=== PATIENT | female | born 1930 | race Caucasian/White ===

== ENCOUNTER 2018-12-26 09:39 | Inpatient (IN) | payer MEDICARE, BC ==
[~2018-12-26] VITALS: Ht 162.6 cm; Wt 93.7 kg
[~2018-12-26 09:39] MED LIST: cefTRIAXone SOD 1 GM in D5W MINI-BAG PLUS 50 ML IV SCH
[2018-12-26] MEDS ORDERED: ONDANSETRON 4MG/2ML VIAL (J2405) IV ONE (10:00)
[2018-12-26] MEDS ORDERED: NS 1,000 ML IV ONE ×2 (10:00→13:30)
[2018-12-26] MEDS ORDERED: LIDOCAINE 2% 5ML JELLY UROJET TOP ONE (10:00)
[2018-12-26] MEDS ORDERED: HYDR12.55 PO (10:26)
[2018-12-26] MEDS ORDERED: LEVO125T4 PO (10:26)
[2018-12-26] MEDS ORDERED: LISI10TA4 PO (10:26)
[2018-12-26] MEDS ORDERED: OCUVTAB4 PO (10:26)
--- NOTE | 2018-12-26 10:30 | REP ---
Portable chest x-ray: Single view. History: Abdomen pain. Findings: Monitoring electrodes are seen. The patient appears to be status post right mastectomy. There are clips in right axilla. The lungs are symmetrically aerated and clear. Heart is not enlarged. Pulmonary vasculature is not increased. Impression: No acute disease. Electronically Signed by Ciro Powell MD 12/26/2018 10:21 A
[2018-12-26] MEDS ORDERED: hydroCHLOROthiazide 12.5 MG CAPSULE PO ONE (10:45)
[2018-12-26 10:52] LABS: BASO % 0.1 % (0.0-1.0); HEMATOCRIT 40.9 % (36.0-47.0); HEMOGLOBIN 13.4 g/dl (12.0-15.5); LYMPH # 0.6 10^3/uL (1.5-5.0); LYMPH % 7.9 % (24.0-44.0); MEAN CORPUSCULAR HEMOGLOBIN 33.4 pg (27.0-33.0); MEAN CORPUSCULAR HGB CONC 32.8 g/dl (32.0-36.5); MONO # 0.4 10^3/uL (0.0-0.8); MONO % 5.3 % (0.0-5.0); NEUTROPHILS # 6.9 10^3/uL (1.5-8.5); NEUTROPHILS % 86.4 % (36.0-66.0); PLATELET COUNT, AUTOMATED 201 10^3/uL (150-450); RED BLOOD COUNT 4.01 10^6/uL (4.00-5.40)
[2018-12-26 11:04] LABS: INR 0.99; PROTHROMBIN TIME 12.8 SECONDS (11.8-14.0)
[2018-12-26 11:05] LABS: PARTIAL THROMBOPLASTIN TIME 24.2 SECONDS (25.0-38.4)
[2018-12-26] MEDS ORDERED: ISOVUE-370 76% 100ML VIAL (Q9967) As Ordered ONE (11:24)
[2018-12-26 11:30] LABS: ALBUMIN 3.7 GM/DL (3.2-5.2); ALT/SGPT 21 U/L (12-78); BILIRUBIN,DIRECT 0.1 MG/DL (0.0-0.2); BILIRUBIN,TOTAL 0.5 MG/DL (0.2-1.0); CK-MB VALUE MASS 1.3 NG/ML (<3.6); CPK CREATINE PHOSPHOKINASE 53 U/L (26-192); LIPASE 62 U/L (73-393); MB/CK RELATIVE INDEX 2.45 (< OR =4); TOTAL PROTEIN 7.4 GM/DL (6.4-8.2); TROPONIN I < 0.02 NG/ML (< 0.10)
[2018-12-26] MEDS ORDERED: PIPERACILLIN/TAZOBACTAM SOD 3.375 GM in D5W MINI-BAG PLUS 50 ML IV ONE (11:45)
--- NOTE | 2018-12-26 12:32 | REP ---
CT ABDOMEN AND PELVIS WITH IV BUT WITHOUT ORAL CONTRAST: HISTORY: Lower abdomen pain. No comparison CT study. The patient gives additional history of breast carcinoma. CT CONTRAST DOSE: 100 mL of intravenous Isovue-[address] FINDINGS: Preliminary digital geophysical prospector radiograph shows clips in the right upper quadrant. Bowel gas pattern is normal. The lung bases are clear on axial CT images. There is a moderate size sliding-type hiatal hernia. The liver is normal in size, homogeneous in texture. Post cholecystectomy clips are seen. No biliary ductal dilation is observed. Spleen is unremarkable. No adrenal lesion is seen on either side. There is an obstructive nephrogram on the right with perinephric edema. There is mild right-sided hydronephrosis. There are cortical cysts in the right kidney, the largest of which measures 1.8 cm. Left kidney is normal in appearance. There is a retroaortic left renal vein noted incidentally. The right hydroureter is seen traceable to the ureterovesical junction, where there is an obstructing calculus in the ureterovesical junction. This calculus measures 6 mm in greatest diameter on coronal multiplanar re-formation image. No bladder calculus is seen. No other ureteral calculus or upper tract calculus is appreciated. No retroperitoneal mass or adenopathy is seen. No pancreatic abnormalities observed. Vascular calcification is noted. No uterine or ovarian abnormality is seen. There is a small periumbilical hernia transmitting abdominal fat through a 1.6 cm defect. IMPRESSION: Obstructive 6 mm right ureterovesical junction calculus producing moderate right-sided hydronephrosis and hydroureter. Electronically Signed by Ciro Powell MD 12/26/2018 12:38 P
[2018-12-26] MEDS ORDERED: KETOROLAC 30 MG/ML VIAL (J1885) IV PRN (13:45)
[2018-12-26] MEDS ORDERED: PERCOCET 5MG/325MG TAB PO PRN ×2 (13:45→23:15)
[2018-12-26] MEDS ORDERED: hydrALAZINE INJ 20 MG/ML VIAL IV PRN (13:45)
[2018-12-26] MEDS ORDERED: APAP500T10 PO (13:51)
[2018-12-26] MEDS: LISINOPRIL 10 MG TAB PO SCH (14:51)
--- NOTE | 2018-12-26 17:18 | HPEPDOC ---
[facility] Medical History & Physical Date of Admission Dec 26, 2018 Date of Service: Dec 26, 2018 Attending Physician: BRYAN ZAMUDIO MD History and Physical CHIEF COMPLAINT: Abdominal pain HISTORY OF PRESENT ILLNESS: 88-year-old female with past medical history of hypertension, hypothyroidism, presents with nausea, vomiting and abdominal pain since last night. She reports feeling well up until then with sudden onset lower abdominal plain, followed by nausea and multiple episodes of nonbloody, no nbilious vomiting. She continued having vomiting up until presenting to the emergency room, also had one episode of emesis in the emergency department. Otherwise, she reports lower abdominal pain with mild to moderate left flank pain as well. She denies any associated fever, chest pain, shortness of breath, diarrhea or constipation. She denies any recent sick contacts, in the emergency room she was found to have obstructive uropathy with moderate right hydronephrosis. She was evaluated by urology, plan for surgical intervention later today. 10 point review of systems negative except for above PAST MEDICAL HISTORY: 1. Hypertension. 2. Hypothyroidism. PAST SURGICAL HISTORY: 1. Cholecystectomy. SOCIAL HISTORY: Never smoker. Denies alcohol. Denies drug use FAMILY HISTORY: Family history positive for heart disease ALLERGIES: Please see below. HOME MEDICATIONS: Please see below. PHYSICAL EXAMINATION: VITAL SIGNS: Please see below. GENERAL: No distress HEENT: Normocephalic, atraumatic, moist mucous membranes NECK: Supple CARDIOVASCULAR EXAMINATION: S1, S2, no murmurs RESPIRATORY EXAMINATION: Clear to auscultation, no wheezing ABDOMINAL EXAMINATION: Soft, nontender, nondistended, positive bowel sounds EXTREMITIES: Range of motion intact SKIN: No rash NEUROLOGICAL EXAMINATION: Alert and oriented 3, no focal deficits PSYCHIATRIC EXAMINATION: Calm and cooperative LABORATORY DATA: See below. IMAGING: CT abdomen and pelvis showing 6 mm stone at the right UVJ with subsequent moderate hydronephrosis and hydroureter. MICROBIOLOGY: Please see below. ASSESSMENT: 88-year-old female with past medical history of hypertension, hypothyroidism, presents with obstructive uropathy causing right sided moderate hydronephrosis and hydroureter. PLAN: 1. Obstructive uropathy. 6 mm stone at the right UVJ causing moderate right hydronephrosis and hydroureter. Evaluated by urology, plan for surgical intervention later today. Continue IV fluids, pain control UA concerning for UTI, status post Zosyn in the ED, continue ceftriaxone. 2. Hypertension. BP elevated in the ED, IV hydralazine when necessary, continue home BP meds (lisinopril and hydrochlorothiazide) 3. Hypothyroidism. Continue levothyroxine DVT prophylaxis: Heparin subcutaneous GI prophylaxis: Not needed Vital Signs Vital Signs Date Time Temp Pulse Resp B/P (MAP) Pulse Ox O2 Delivery O2 Flow Rate FiO2 12/26/18 16:30 97 190/73 (112) 97 Room Air 12/26/18 15:00 18 12/26/18 09:39 96.6 Laboratory Data Labs 24H Laboratory Tests 2 12/26/18 09:57: Lactic Acid Level 3.0*H 12/26/18 10:02: Immature Granulocyte % (Auto) 0.3, Neutrophils (%) (Auto) 86.4H, Lymphocytes (%) (Auto) 7.9L, Monocytes (%) (Auto) 5.3H, Eosinophils (%) (Auto) 0.0, Basophils (%) (Auto) 0.1, Neutrophils # (Auto) 6.9, Lymphocytes # (Auto) 0.6L, Monocytes # (Auto) 0.4, Eosinophils # (Auto) 0.0, Basophils # (Auto) 0.0, Nucleated Red Blood Cells % (auto) 0.0, Prothrombin Time 12.8, Prothromb Time International Ratio 0.99, Activated Partial Thromboplast Time 24.2L, Total Bilirubin 0.5, Direct Bilirubin 0.1, Aspartate Amino Transf (AST/SGOT) 14, Alanine Aminotransferase (ALT/SGPT) 21, Alkaline Phosphatase 69, Total Creatine Kinase 53, Creatine Kinase MB 1.3, Creatine Kinase MB Relative Index 2.45, Troponin I < 0.02, Total Protein 7.4, Albumin 3.7, Albumin/Globulin Ratio 1.00, Lipase 62L 12/26/18 10:08: POC Glucose (Misc Panel) 269H, POC Sodium (Misc Panel) 139, POC Potassium (Misc Panel) 4.0, POC Chloride (Misc Panel) 105, POC Total CO2 (Misc Panel) 24.0, POC Blood Urea Nitrogen (Misc Panel 27H, POC Ionized Calcium (Misc Panel) 4.7, POC Creatinine (Misc Panel) 1.0, POC Hematocrit (Misc Panel) 41.0 12/26/18 11:21: Urine Color YELLOW, Urine Appearance HAZY, Urine pH 5.0, Urine Specific [place] 1.016, Urine Protein 1+H, Urine Glucose (UA) 3+H, Urine Ketones 2+H, Urine Blood 2+H, Urine Nitrite NEGATIVE, Urine Bilirubin NEGATIVE, Urine Urobilinogen 0.2, Urine Leukocyte Esterase 3+H, Urine WBC (Auto) 46H, Urine RBC (Auto) 45H, Urine Hyaline Casts (Auto) 0, Urine Bacteria (Auto) 1+H, Urine Squamous Epithelial Cells 4, Urine Mucus (Auto) SMALL, Urine Sperm (Auto) 12/26/18 16:07: Lactic Acid Followup at 4 Hours 3.2*H CBC/BMP Laboratory Tests 12/26/18 10:02 Microbiology Microbiology 12/26/18 Urine Culture, Received Pending 12/26/18 Blood Culture, Received Pending 12/26/18 Blood Culture, Received Pending Home Medications Scheduled Hydrochlorothiazide (Hydrochlorothiazide) 12.5 Mg Tablet, 12.5 MG PO DAILY Levothyroxine Sodium (Levothyroxine Sodium) 125 Mcg Tablet, 125 MCG PO DAILY Lisinopril (Lisinopril) 10 Mg Tablet, 10 MG PO DAILY Vit A/Vit C/Vit E/Zinc/Copper (Preservision Areds Tablet) 1 Each Tablet, 1 TAB PO DAILY Scheduled PRN Acetaminophen (Acetaminophen) 500 Mg Tablet, 1,000 MG PO Q4H PRN for PAIN Allergies Coded Allergies: morphine (Verified Adverse Reaction, Mild, HALLUCINATIONS, 12/26/18) A-FIB/CHADSVASC A-FIB History Current/History of A-Fib/PAF?: No BRYAN ZAMUDIO MD Dec 26, 2018 17:18
[2018-12-26 18:00] VITALS: BP 139/78
[2018-12-26] MEDS: ACETAMINOPHEN 500 MG TAB PO PRN (18:42)
--- NOTE | 2018-12-26 19:05 | ECGEPIP ---
[facility] - ED Test Date: 2018-12-26 Pat Name: GENTRY MIN Department: Room: - Gender: Female [place] [employer]: : 1930 Requested By: Trey Matthew Order Number: [id number] Reading MD: Sania Hickey Measurements Intervals [place] Rate: 97 P: 68 IN: 160 QRS: 20 QRSD: 102 T: 5 QT: 350 QTc: 446 Interpretive Statements SINUS RHYTHM NONSPECIFIC T-WAVE ABNORMALITY NO PRIOR Electronically Signed on 12-26-2018 19:04:54 EST by Sania Hickey
[2018-12-26 20:00] VITALS: BP 128/50
[2018-12-26] MEDS ORDERED: NS 1,000 ML IV SCH (20:15)
[2018-12-26] MEDS: HEPARIN SOD (PORCINE) 5000 UNITS/ML VIAL SC SCH (20:31)
[2018-12-26] MEDS ORDERED: SEVOFLURANE INHAL SOLN 250 ML BTL As Ordered ONE (21:31)
[2018-12-26] MEDS ORDERED: fentaNYL 100 MCG/2 ML INJECTION (J3010) As Ordered ONE (21:32)
[2018-12-26] MEDS ORDERED: ONDANSETRON 4MG/2ML VIAL (J2405) As Ordered ONE (21:33)
[2018-12-26] MEDS ORDERED: METOCLOPRAMIDE INJ 10MG/2ML VIAL (J2765) As Ordered ONE (21:33)
[2018-12-26] MEDS ORDERED: dexameTHASONE 4 MG/ML 1ML VIAL (J1100) As Ordered ONE (21:34)
[2018-12-26] MEDS ORDERED: PROPOFOL 200 MG/20 ML VIAL As Ordered ONE (21:35)
[2018-12-26] MEDS ORDERED: ROCURONIUM BROMIDE 50 MG/5 ML VIAL As Ordered ONE (21:35)
[2018-12-26] MEDS ORDERED: LIDOCAINE 2% INJ 100 MG/5 ML SDV (FOR ANES.) As Ordered ONE (21:35)
[2018-12-26] MEDS ORDERED: CONRAY-60 60% 50ML VIAL (Q9961) As Ordered ONE (21:47)
[2018-12-26] MEDS ORDERED: SUGAMMADEX SODIUM 500 MG/5 ML VIAL (BRIDION) As Ordered ONE (22:19)
[2018-12-26] MEDS ORDERED: LR 1,000 ML IV SCH (23:15)
[2018-12-26] MEDS ORDERED: ONDANSETRON 4MG/2ML VIAL (J2405) IV PRN (23:15)
[2018-12-26] MEDS ORDERED: fentaNYL 100 MCG/2 ML INJECTION (J3010) IV PRN (23:15)
[2018-12-27] VITALS (8 sets, daily range): BP systolic 124–170; BP diastolic 58–86
[2018-12-27] MEDS ORDERED: LR 1,000 ML IV SCH
[2018-12-27] MEDS: LEVOTHYROXINE 125MCG TABLET (0.125MG) PO SCH (05:42)
[2018-12-27 06:34] LABS: ALBUMIN 2.9 GM/DL (3.2-5.2); ALT/SGPT 19 U/L (12-78); BILIRUBIN,TOTAL 0.4 MG/DL (0.2-1.0); BLOOD UREA NITROGEN 25 MG/DL (7-18); CALCIUM LEVEL 8.6 MG/DL (8.8-10.2); CARBON DIOXIDE LEVEL 21 MEQ/L (21-32); CHLORIDE LEVEL 112 MEQ/L (98-107); CREATININE FOR GFR 0.82 MG/DL (0.55-1.30); GLOMERULAR FILTRATION RATE > 60.0 (>32); GLUCOSE, FASTING 184 MG/DL (70-100); MAGNESIUM LEVEL 1.9 MG/DL (1.8-2.4); POTASSIUM SERUM 3.9 MEQ/L (3.5-5.1); SODIUM LEVEL 139 MEQ/L (136-145); TOTAL PROTEIN 6.7 GM/DL (6.4-8.2)
--- NOTE | 2018-12-27 08:28 | REP ---
RETROGRADE PYELOGRAM: SINGLE VIEW. HISTORY: Cystoscopy, right ureteroscopy. 30 seconds of fluoroscopy time is reported. FINDINGS: A single, last image hold fluoroscopically-obtained spot radiograph documents ureteral stent in place. No laterality marker is visible. There are clips in the upper abdomen correlating with this being a right-sided procedure. Electronically Signed by Ciro Powell MD 12/27/2018 09:15 A
[2018-12-27] MEDS: LISINOPRIL 10 MG TAB PO SCH (09:59)
[2018-12-27] MEDS: HEPARIN SOD (PORCINE) 5000 UNITS/ML VIAL SC SCH ×2 (09:59→20:32)
[2018-12-27] MEDS: hydroCHLOROthiazide 12.5 MG CAPSULE PO SCH (09:59)
[2018-12-27 10:37] LABS: HEMATOCRIT 38.6 % (36.0-47.0); HEMOGLOBIN 12.6 g/dl (12.0-15.5); MEAN CORPUSCULAR HEMOGLOBIN 33.6 pg (27.0-33.0); MEAN CORPUSCULAR HGB CONC 32.6 g/dl (32.0-36.5); MEAN CORPUSCULAR VOLUME 102.9 fl (80.0-96.0); PLATELET COUNT, AUTOMATED 193 10^3/uL (150-450); RED BLOOD COUNT 3.75 10^6/uL (4.00-5.40); WHITE BLOOD COUNT 9.2 10^3/uL (4.0-10.0)
--- NOTE | 2018-12-27 11:22 | CR ---
DATE OF CONSULT: 12/26/2018 REASON FOR CONSULT: Right hydronephrosis. HISTORY: This is a pleasant 88-year-old white female who presented to the emergency room because of a complaint of lower abdominal pain for about one day. She states that the abdominal pain started suddenly and was accompanied by some nausea and vomiting. She denies any urinary complaints and has no history of gross hematuria or previous history of renal stones or other urologic conditions. CT scan shows mild right hydronephrosis and a large stone at the distal right ureter. Urology consult was therefore called. PAST MEDICAL HISTORY: Significant for hypertension, hypothyroidism. PAST SURGICAL HISTORY: Cholecystectomy. SOCIAL HISTORY: Patient never smoked. Does not drink or use recreational drugs. FAMILY HISTORY: Positive only for heart disease with no history of stones or urologic issues. PHYSICAL EXAMINATION: Shows an alert, oriented white female, who is in no acute distress. HEENT: Pupils are equal and reactive to light. Sclerae are white. Extraocular muscles intact. Neck is supple without adenopathy. Trachea is in the midline. No jugular venous distention. Chest is normothoracic. Abdomen is slightly rounded, soft, and benign. There are no masses, organomegaly, or tenderness. She did not have any costovertebral angle (CVA) tenderness. Vital signs show that she is not febrile. Urine culture and blood cultures were sent. Laboratory data showed a white cell count of 8.0 and urinalysis showed no nitrites. The urine was yellow, hazy with 4+ glucose, 2+ blood, 48 white cells, and 45 red cells per high power field. Blood pressure is 188/107. ASSESSMENT: Distal right ureteral calculus, probably responsible for the patient's nausea, vomiting, and abdominal discomfort. Because of her blood pressures and the hydronephrosis, I recommended stone removal, which will be performed later today.
[2018-12-27] MEDS ORDERED: cefTRIAXone SOD 1 GM in D5W MINI-BAG PLUS 50 ML IV SCH (12:00)
[2018-12-27] MEDS: OCUVITE 1 TAB PO SCH (13:00)
--- NOTE | 2018-12-27 16:09 | IPNPDOC ---
Date Seen The patient was seen on 12/27/18. Progress Note HISTORY OF PRESENT ILLNESS: 88-year-old female with past medical history of hypertension, hypothyroidism, presents with nausea, vomiting and abdominal pain since last night. She reports feeling well up until then with sudden onset lower abdominal plain, followed by nausea and multiple episodes of nonbloody, nonbilious vomiting. She continued having vomiting up until presenting to the emergency room, also had one episode of emesis in the emergency department. Otherwise, she reports lower abdominal pain with mild to moderate left flank pain as well. She denies any associated fever, chest pain, shortness of breath, diarrhea or constipation. She denies any recent sick contacts, in the emergency room she was found to have obstructive uropathy with moderate right hydronephrosis. She was evaluated by urology, plan for surgical intervention later today. 12/27/2018 Patient comfortable in bed, without any complaints, reports complete resolution of abdominal/flank pain, denies any nausea, vomiting as well, tolerating diet, wishing to go home today. 10 point review of systems negative except for above HOME MEDICATIONS: Please see below. PHYSICAL EXAMINATION: VITAL SIGNS: Please see below. GENERAL: No distress HEENT: Normocephalic, atraumatic, moist mucous membranes NECK: Supple CARDIOVASCULAR EXAMINATION: S1, S2, no murmurs RESPIRATORY EXAMINATION: Clear to auscultation, no wheezing ABDOMINAL EXAMINATION: Soft, nontender, nondistended, positive bowel sounds EXTREMITIES: Range of motion intact SKIN: No rash NEUROLOGICAL EXAMINATION: Alert and oriented 3, no focal deficits PSYCHIATRIC EXAMINATION: Calm and cooperative LABORATORY DATA: See below. IMAGING: CT abdomen and pelvis showing 6 mm stone at the right UVJ with subsequent moderate hydronephrosis and hydroureter. MICROBIOLOGY: Please see below. ASSESSMENT: 88-year-old female with past medical history of hypertension, hypothyroidism, presents with obstructive uropathy causing right sided moderate hydronephrosis and hydroureter. PLAN: 1. Obstructive uropathy. 6 mm stone at the right UVJ causing moderate right hydronephrosis and hydroureter. Status post ureteral stent placement, discontinue IV fluids, continue pain control as needed, continue ceftriaxone, urine cultures pending. 2. Hypertension. BP well controlled today, continue home lisinopril and hydrochlorothiazide. 3. Hypothyroidism. Continue levothyroxine DVT prophylaxis: Heparin subcutaneous GI prophylaxis: Not needed VS, I&O, 24H, Fishbone Vital Signs/I&O Vital Signs Date Time Temp Pulse Resp B/P (MAP) Pulse Ox O2 Delivery O2 Flow Rate FiO2 12/27/18 12:00 99.9 83 18 139/58 (85) 99 12/27/18 11:03 Room Air 12/27/18 08:00 2.0 I&O- Last 24 Hours up to 6 AM 12/27/18 06:00 Intake Total 2210 ml Output Total 600 ml Balance 1610 ml Laboratory Data 24H LABS Laboratory Tests 2 12/27/18 06:01: Anion Gap 6L, Glomerular Filtration Rate > 60.0, Lactic Acid Level 1.4, Calcium Level 8.6L, Magnesium Level 1.9, Total Bilirubin 0.4, Aspartate Amino Transf ( AST/SGOT) 12, Alanine Aminotransferase (ALT/SGPT) 19, Alkaline Phosphatase 57, Total Protein 6.7, Albumin 2.9#L, Albumin/Globulin Ratio 0.76L 12/27/18 10:12: Nucleated Red Blood Cells % (auto) 0.0 CBC/BMP Laboratory Tests 12/27/18 06:01 12/27/18 10:12 Microbiology Microbiology 12/26/18 Urine Culture, Received Pending 12/26/18 Blood Culture - Preliminary, Resulted No growth after 24 hours . All specim... 12/26/18 Blood Culture - Preliminary, Resulted No growth after 24 hours . All specim... BRYAN ZAMUDIO MD Dec 27, 2018 16:09
[2018-12-27] MEDS ORDERED: ONDANSETRON 4MG/2ML VIAL (J2405) IV PRN (18:00)
[2018-12-27] MEDS: ACETAMINOPHEN 500 MG TAB PO PRN (18:15)
[2018-12-28 04:00] VITALS: BP 150/62
[2018-12-28] MEDS: LEVOTHYROXINE 125MCG TABLET (0.125MG) PO SCH (05:40)
[2018-12-28 06:03] LABS: HEMATOCRIT 36.7 % (36.0-47.0); HEMOGLOBIN 12.2 g/dl (12.0-15.5); MEAN CORPUSCULAR HEMOGLOBIN 33.8 pg (27.0-33.0); MEAN CORPUSCULAR HGB CONC 33.2 g/dl (32.0-36.5); MEAN CORPUSCULAR VOLUME 101.7 fl (80.0-96.0); PLATELET COUNT, AUTOMATED 190 10^3/uL (150-450); RED BLOOD COUNT 3.61 10^6/uL (4.00-5.40); WHITE BLOOD COUNT 7.9 10^3/uL (4.0-10.0)
[2018-12-28 06:24] LABS: BLOOD UREA NITROGEN 27 MG/DL (7-18); CALCIUM LEVEL 8.6 MG/DL (8.8-10.2); CARBON DIOXIDE LEVEL 28 MEQ/L (21-32); CHLORIDE LEVEL 109 MEQ/L (98-107); GLOMERULAR FILTRATION RATE > 60.0 (>32); GLUCOSE, FASTING 159 MG/DL (70-100); MAGNESIUM LEVEL 1.8 MG/DL (1.8-2.4); PHOSPHORUS LEVEL 2.5 MG/DL (2.5-4.9); POTASSIUM SERUM 3.5 MEQ/L (3.5-5.1); SODIUM LEVEL 143 MEQ/L (136-145)
[2018-12-28 08:04] VITALS: BP 150/62
[2018-12-28] MEDS: LISINOPRIL 10 MG TAB PO SCH (08:04)
[2018-12-28] MEDS: hydroCHLOROthiazide 12.5 MG CAPSULE PO SCH (08:04)
[2018-12-28] MEDS: HEPARIN SOD (PORCINE) 5000 UNITS/ML VIAL SC SCH (08:04)
[2018-12-28] MEDS ORDERED: AZITHROMYCIN 250 MG TAB PO SCH (09:00)
[2018-12-28] MEDS ORDERED: AZIT-12 PO (11:24)
[2018-12-28] MEDS: OCUVITE 1 TAB PO SCH (12:27)
--- NOTE | 2018-12-28 14:27 | DS.PDOC ---
Discharge Summary General Date of Admission Dec 26, 2018 at 13:32 Date of Discharge 12/28/18 Specialist/Consultants Involve urology Discharge Summary PROCEDURES PERFORMED DURING STAY: Ureteral stent ADMITTING DIAGNOSES: Obstructive uropathy DISCHARGE DIAGNOSES: obstructive uropathy uti COMPLICATIONS/CHIEF COMPLAINT: Hydronephrosis. HISTORY OF PRESENT ILLNESS: 88-year-old female with past medical history of hypertension, hypothyroidism, presents with nausea, vomiting and abdominal pain since last night. She reports feeling well up until then with sudden onset lower abdominal plain, followed by nausea and multiple episodes of nonbloody, nonbilious vomiting. She continued having vomiting up until presenting to the emergency room, also had one episode of emesis in the emergency department. Otherwise, she reports lower abdominal pain with mild to moderate left flank pain as well. She denies any associated fever, chest pain, shortness of breath, diarrhea or constipation. She denies any recent sick contacts, in the emergency room she was found to have obstructive uropathy with moderate right hydronephrosis. She was evaluated by urology, plan for surgical intervention later today. HOSPITAL COURSE: Seen by consultation by urology, and underwent right ureteral stent placement. Urine cultures revealed MRSA, discharged home with oral anti- microbial therapy. 1. Obstructive uropathy. 6 mm stone at the right UVJ causing moderate right hydronephrosis and hydroureter. Status post ureteral stent placement 2. Hypertension. continue home lisinopril and hydrochlorothiazide. 3. Hypothyroidism. Continue levothyroxine DISCHARGE MEDICATIONS: Please see below. ALLERGIES: Please see below. PHYSICAL EXAMINATION ON DISCHARGE: VITAL SIGNS: Please see below. GENERAL: NAD, sitting comfortably in chair, anxious to return homoe HEENT: NC/AT, Lungs: CTA B/L Heart: +S1S2 Abd: soft, NT, +BS Ext: no edema LABORATORY DATA: Please see below. ACTIVITY: [As tolerated]. DISPOSITION: 01 Home, Self-Care. DISCHARGE INSTRUCTIONS: 1. Follow up PCP in 3-5 days 2. Follow up urology as scheduled DISCHARGE CONDITION: [Stable]. TIME SPENT ON DISCHARGE: 35 minutes. Vital Signs/I&Os Vital Signs Date Time Temp Pulse Resp B/P (MAP) Pulse Ox O2 Delivery O2 Flow Rate FiO2 12/28/18 08:04 150/62 12/28/18 04:00 98.2 80 16 97 Room Air 12/27/18 08:00 2.0 I&O- Last 24 Hours up to 6 AM 12/28/18 05:59 Intake Total 1260 ml Output Total 600 ml Balance 660 ml Laboratory Data Labs 24H Laboratory Tests 2 12/28/18 05:50: Nucleated Red Blood Cells % (auto) 0.0, Anion Gap 6L, Glomerular Filtration Rate > 60.0, Calcium Level 8.6L, Phosphorus Level 2.5, Magnesium Level 1.8 CBC/BMP Laboratory Tests 12/28/18 05:50 Microbiology Microbiology 12/26/18 Urine Culture - Final, Complete Staph.aureus Methicillin Resis 12/26/18 Blood Culture - Preliminary, Resulted No Growth after 48 hours. All Specime... 12/26/18 Blood Culture - Preliminary, Resulted No Growth after 48 hours. All Specime... Discharge Medications Scheduled Azithromycin (Azithromycin) 250 Mg Tablet, 500 MG PO DAILY start 12/29/18 Hydrochlorothiazide (Hydrochlorothiazide) 12.5 Mg Tablet, 12.5 MG PO DAILY, (Reported) Levothyroxine Sodium (Levothyroxine Sodium) 125 Mcg Tablet, 125 MCG PO DAILY, (Reported) Lisinopril (Lisinopril) 10 Mg Tablet, 10 MG PO DAILY, (Reported) Vit A/Vit C/Vit E/Zinc/Copper (Preservision Areds Tablet) 1 Each Tablet, 1 TAB PO DAILY, (Reported) Scheduled PRN Acetaminophen (Acetaminophen) 500 Mg Tablet, 1,000 MG PO Q4H PRN for PAIN, (Reported) Allergies Coded Allergies: morphine (Verified Adverse Reaction, Mild, HALLUCINATIONS, 12/26/18) ENMANUEL KOLB MD Dec 28, 2018 14:27
--- NOTE | 2018-12-29 11:15 | RO ---
DATE OF PROCEDURE: 12/26/2018 PREOPERATIVE DIAGNOSIS: Right ureteral calculus. POSTOPERATIVE DIAGNOSIS: Right ureteral calculus. PROCEDURE: Cystoscopy with right retrograde pyelogram, ureteroscopic stone extraction and stent insertion. SURGEON: Dr. Mahendra Forman PIPELINE DISPATCH OPERATOR: None. ANESTHESIA: General. DESCRIPTION OF PROCEDURE: The patient was anesthetized with general anesthesia after being placed on the table in a supine position. She was then placed in lithotomy position, prepped with Betadine paint and draped in an aseptic manner. A time out was then performed. A rigid cystoscope was then inserted into the meatus and the patient was found to have severe excoriation of the perineal area and a large urethral prolapse. The scope was easily advanced into the bladder which was examined with a 30 degree lens showing normal bladder mucosa. Both ureteral orifices appeared stenotic and there was efflux from both orifices. The right ureteral orifice was then catheterized with a 5 Pakistani open-ended catheter and retrograde injection of 10 mL of Conray showed the patient had a distal ureteral calclus. A wire guide was then inserted into the orifice and advanced up to the renal pelvis and the cystoscope was removed leaving the safety wire in place. A semi-rigid ureteroscope was then introduced into the bladder and advanced into the right ureteral orifice. The stone was encountered and trapped in a wire stone basket. The stone was then able to be advanced and extracted without difficulty, although it was a little tight at the intramural ureter. The cystoscope was then advanced over the safety wire and a 6 Pakistani JJ stent was passed over this wire and curled well in the renal pelvis and in the bladder when the wire was removed. The bladder was then drained. Cystoscope was removed. The patient was awakened and sent to recovery room in stable condition having tolerated the procedure well. Estimated blood loss less than 10 mL. Drains: 6 Pakistani JJ stent. Transfusions: None. Specimen: Ureteral calculus. Indication for the Procedure: This is an 88-year-old white female who presented to the emergency room with severe abdominal pain and nausea. CT scan showed she had mild hydronephrosis on the right side with a distal ureteral calculus. The patient was also hypertensive and the urine did not appear infected. She was therefore brought to the operating room for stone extraction. EBEN
== END 2018-12-28 13:00 | disposition home or self-care (01) | DRG 661 ==
LOC: M ED 09:39 → M ED INP 13:32 → M PCU 18:12 → M MS4PR 12-28 08:14
PROVIDERS: ADMIT Internal Medicine; ATTEND Internal Medicine
PROC: 0T768DZ Dilation of Right Ureter with Intraluminal Device, Via Natural or Artificial Opening Endoscopic (ICD-10-PCS; 2018-12-26)
PROC: 0TC68ZZ Extirpation of Matter from Right Ureter, Via Natural or Artificial Opening Endoscopic (ICD-10-PCS; principal; 2018-12-26 16:00)
DX: N13.2 Hydronephrosis with renal and ureteral calculous obstruction (principal); I10 Essential (primary) hypertension; E03.9 Hypothyroidism, unspecified; Z90.49 Acquired absence of other specified parts of digestive tract; Z88.5 Allergy status to narcotic agent; Z79.899 Other long term (current) drug therapy